=== PATIENT | female | born 1995 | race Caucasian/White ===

== ENCOUNTER 2020-06-29 09:02 | Outpatient (REF) | payer OTHER, SELFPAY ==
[2020-06-29 09:28] LABS: COVID-19 Test Negative (Negative)
== END 2020-06-29 09:03 | disposition home or self-care (01) ==
LOC: HO.LAB 09:02
PROVIDERS: Visit Provider Internal Medicine
DX: Z20.828 Contact with and (suspected) exposure to other viral communicable diseases (principal)
CPT/HCPCS: 87635; C9803

== ENCOUNTER → 2020-08-17 14:54 | Outpatient (BNVA) | payer OTHER, SELFPAY | PROVIDERS: Visit Provider Advanced Practice Midwife | DX: Z32.00 Encounter for pregnancy test, result unknown (principal) | CPT/HCPCS: 81025 ==

== ENCOUNTER 2020-08-24 15:17 | Outpatient (REF) | payer OTHER, SELFPAY ==
[2020-08-24 15:42] LABS: COVID-19 Test Negative (Negative)
== END 2020-08-24 15:18 | disposition home or self-care (01) ==
LOC: HO.EMPCOV 15:17
PROVIDERS: Visit Provider Internal Medicine
DX: Z20.822 Contact with and (suspected) exposure to COVID-19 (principal)
CPT/HCPCS: 36415; 87635; C9803

== ENCOUNTER → 2020-09-01 14:06 | Outpatient (BNVA) | payer OTHER, SELFPAY | PROVIDERS: Visit Provider Advanced Practice Midwife | CPT/HCPCS: 99212 ==

== ENCOUNTER 2020-09-03 10:28 | Outpatient (REF) | payer OTHER, SELFPAY ==
[2020-09-03 11:04] LABS: MANUAL DIFF FLAG NO
[2020-09-03 11:08] LABS: Basophils Percent Auto 0.3 % (0-2); Eosinophils Percent Auto 0.5 % (0-4); Hematocrit 35.1 % (37-47); Imm Gran Abs Auto 0.01 X10*3/uL (0.00-0.03); Imm Gran Pct Auto 0.3 % (0.0-0.4); Lymphocytes Absolute Auto 1.6 X10*3/uL (1.2-4.9); Lymphocytes Percent Auto 40.6 % (20-40); Mean Corpuscular HGB Conc 34.2 g/dl (31.0-35.0); Mean Corpuscular Hemoglobin 28.2 pg (27.0-33.0); Mean Corpuscular Volume 82.4 fL (80-98); Mean Platelet Volume 10.5 fL (9.4-12.3); Monocytes Absolute Auto 0.4 X10*3/uL (0.1-1.2); Monocytes Percent Auto 9.3 % (2-11); Platelet Count 205 X10*3/uL (160-400); Red Blood Count 4.26 X10*6/uL (4.20-5.50); Red Cell Distribution Width 13.1 % (11.0-16.0)
[2020-09-03 11:52] LABS: Amphetamine Screen Urine Not Detected (Not Detect); Barbiturates, Urine Not Detected (Not Detect); Benzodiazepines Screen Urine Not Detected (Not Detect); Cannabinoid Screen Urine Not Detected (Not Detect); Cocaine Screen Urine Not Detected (Not Detect); Opiate Screen Urine Not Detected (Not Detect); Phencyclidine Screen Urine Not Detected (Not Detect)
[2020-09-04 03:47] LABS: HBsAGNum1 0.19 S/CO (0.00-0.99); HIV AB/AG Nonreactive (Nonreactive); HIV Num 1 0.11 S/CO (0.00-0.99); Hepatitis B Surface Antigen Negative (Negative); ~HepC Num1 0.07 S/CO (0.00-0.79); ~Hepatitis C Antibody Nonreactive (Nonreactive)
[2020-09-04 03:51] LABS: Syphilis Screen Nonreactive (Nonreactive)
[2020-09-04 05:46] LABS: Rubella IgG Antibody 5.09 Index
== END 2020-09-03 10:29 | disposition home or self-care (01) ==
LOC: HO.LAB 10:28
PROVIDERS: Visit Provider Advanced Practice Midwife
DX: Z34.90 Encounter for supervision of normal pregnancy, unspecified, unspecified trimester (principal)
CPT/HCPCS: 80307; 85025; 86762; 86780; 86787; 86803; 86850; 86900; 86901; 87086; 87340; 87389

== ENCOUNTER 2020-09-08 14:46 | Outpatient (REF) | payer OTHER, SELFPAY ==
[2020-09-09 08:23] LABS: BV Int Neg Control Negative (Negative); BV Int Pos Control Positive (Positive)
[2020-09-09 09:57] LABS: C. trachomatis RNA TMA NOT DETECTED (NOT DETECTED); N. gonorrhoeae RNA TMA NOT DETECTED (NOT DETECTED)
== END 2020-09-08 14:47 | disposition home or self-care (01) ==
LOC: HO.LAB 14:46
PROVIDERS: Visit Provider Advanced Practice Midwife
DX: Z34.91 Encounter for supervision of normal pregnancy, unspecified, first trimester (principal)
CPT/HCPCS: 36415; 87480; 87491; 87510; 87591; 87660; 88142; 99212

== ENCOUNTER 2020-09-11 09:56 | Outpatient (REF) | payer OTHER, SELFPAY ==
--- NOTE | ~2020-09-11 | US_ITS ---
EXAMINATION: OBSTETRICAL ULTRASOUND, FIRST TRIMESTER HISTORY: 25-year-old at the 11.4 weeks of gestation NT screening COMPARISON: None in this TECHNIQUE: Real time transabdominal imaging with color and M-mode Doppler. FINDINGS: A single, live IUP CRL of 50.0 mm c/w 11.6wks is noted. Heart Rate: 144 beats per minute. Normal yolk sac seen. NT was 1.3.mm. NB Present The embryo appears sonographically wnl for this GA. Both maternal ovaries are seen and appear normal. GESTATIONAL AGE: 1. Established GA: 11.4 wks 2. GA from [facility]: 11.6 wks ESTIMATED DATE OF DELIVERY: 1. Established CLOTILDE: 03/29/2021 2. CLOTILDE from [facility]: 03/27/2021 US/US OB 1T nuc measure IMPRESSION: 1. A single live IUP 2. Size equals dates 3. NT of 1.3 mm MFM Consultation: I reviewed the ultrasound findings along with significance of NT measurement. The NT of less than 3mm is generally reassuring. However, the sensitivity for T21 detection is only 60%. I reviewed the availability of serum aneuploidy screening which includes cell-free DNA and placental protein based tests. I discussed the sensitivity, false-positive rate, and other limitations associated with each test. I also reviewed the availability of invasive diagnostic tests that are associated small but definite risk of miscarriage. We also reviewed the differences between screening tests and diagnostic tests. After our discussion, she opted for the First trimester screening that is based on cell-free DNA or non-invasive testing (NIPT). The result will be faxed to your office in approximately 7 days. A follow up at 18 weeks for survey has been scheduled. Thank you very much for this referral. Majority of this visit was spent reviewing her care and counselling her in face to face time: Time spent 20 min.
== END 2020-09-11 09:57 | disposition home or self-care (01) ==
LOC: HO.US 09:56
PROVIDERS: Visit Provider Advanced Practice Midwife
DX: Z34.90 Encounter for supervision of normal pregnancy, unspecified, unspecified trimester (principal); Z36.82 Encounter for antenatal screening for nuchal translucency; Z3A.11 11 weeks gestation of pregnancy
CPT/HCPCS: 76813

== ENCOUNTER → 2020-10-06 14:49 | Outpatient (BNVA) | payer OTHER, SELFPAY | PROVIDERS: Visit Provider Advanced Practice Midwife | DX: Z34.92 Encounter for supervision of normal pregnancy, unspecified, second trimester (principal) | CPT/HCPCS: 81003; 99212 ==

== ENCOUNTER 2020-10-30 12:53 | Outpatient (REF) | payer OTHER, SELFPAY ==
--- NOTE | ~2020-10-30 | US_ITS ---
EXAMINATION: US OBSTETRICAL CLINICAL INFORMATION: 25-year-old at 18.4 weeks of gestation Suspected anomaly COMPARISON: 09/11/2020 TECHNIQUE: Real-time transabdominal ultrasound was performed using C1-5 megahertz transducer. FINDINGS: A single, active, fetus is seen in vertex presentation. The placenta is posterior without previa, and the amniotic fluid volume is wnl. MEASUREMENTS: 1. Biparietal Diameter: 4.2 cm; 18.5 wks 2. Occipital Frontal Diameter: 5.7 cm 3. Head Circumference: 15.7 cm; 18.5 wks 4. Abdominal Circumference: 14.2 cm; 19.4 wks 5. Femur Length: 2.96 cm; 19.1 wks 6. Humerus Length: 2.8 cm; 19.0 wks 7. Tibia Length: 2.61 cm; 19.3 wks 8. Ulna Length: 2.6 cm; 19.3 wks 9. Lateral ventricle: 0.52 cm 10. Cerebellum: 1.91 cm; 19.5 wks 11. Cisterna Magna: 0.42 cm 12. Nuchal Fold: 4.7 mm 13. Heart Rate: 140 beats per minute Rt ovary: normal Lt ovary: normal Cervical length 3.7 cm on T/A. GESTATIONAL AGE: 1. Established GA: 18.4 wks 2. GA from [facility]: 19.1 wks ESTIMATED DATE OF DELIVERY: 1. Established CLOTILDE: 03/29/2021 2. CLOTILDE from [facility]: 03/25/2021 ANATOMY: The visualized anatomy includes but not limited to: 1. Cranium: Normal 2. Intracranial anatomy: cavum septum pellucidi, lateral ventricles, choroid plexus, cerebellum, posterior fossa, third and fourth ventricles. 3. face: orbits, lip/palate, profile, nasal bone 4. Heart: four-chamber view of the heart, ventricular septum, foramen ovale, pulmonary vein, left and right outflow tracts, three-vessel view, 3 vessel trachea view, aortic and ductal arches, situs.. 5. Diaphragm: Normal 6. Abdominal wall: Normal 7. Cord Insertion: Normal 8. Spine: Cervical, thoracic, lumbar, sacral. 9. Stomach: Normal size and shape 10. Right Kidney: Normal 11. Left Kidney: Normal 12. 3 vessel cord: Normal 13. Upper extremity: Open hands, fifth digit. 14. Lower extremity: Tibia, fibula, bilateral feet. 15. Bladder: Normal 16. Genitalia: Female, patient aware US/US OB /maternal detail IMPRESSION: 1. Single, living, intrauterine with appropriate biometry. 2. Normal survey DISCUSSION: I reviewed today's ultrasound findings. We discussed the limitations of ultrasound in diagnosing aneuploidy and other congenital abnormalities. I reviewed the differences between screening test and diagnostic test. Amniocentesis was discussed and declined. She was informed that the baseline incidence of congenital abnormalities is approximately 3-5%. Not all these conditions are diagnosable in utero. RECOMMENDATIONS: 1. Follow-up when necessary Thank you for allowing me to participate in her care. Total time 20 minutes. The time spent was devoted to counseling the patient about the disease and diagnosis, coordinating care including reviewing her records, pertinent lab data and studies, as well as discussing diagnostic evaluation and workup, plan therapeutic interventions and future disposition of care. This includes any additional research needed to obtain further information in formulating the plan of care of this patient. This note was generated with a voice recognition program. Please excuse any errors which may have been overlooked during my review of this note. Sometimes these errors may affect the content or meaning of a given sentence.
== END 2020-10-30 12:54 | disposition home or self-care (01) ==
LOC: HO.US 12:53
PROVIDERS: Visit Provider Advanced Practice Midwife
DX: Z36.3 Encounter for antenatal screening for malformations (principal)
CPT/HCPCS: 76811

== ENCOUNTER → 2020-11-03 13:09 | Outpatient (BNVA) | payer OTHER, SELFPAY | PROVIDERS: Visit Provider Advanced Practice Midwife | DX: Z13.89 Encounter for screening for other disorder (principal) | CPT/HCPCS: 99212 ==

== ENCOUNTER 2020-11-12 09:52 | Outpatient (REF) | payer OTHER, SELFPAY ==
[2020-11-12 10:35] LABS: COVID-19 Test Negative (Negative); IDNOW Serial# 55D5AD1C
== END 2020-11-12 09:53 | disposition home or self-care (01) ==
LOC: HO.EMPCOV 09:52
PROVIDERS: Visit Provider Internal Medicine
DX: Z20.822 Contact with and (suspected) exposure to COVID-19 (principal)
CPT/HCPCS: 36415; 87635; C9803

== ENCOUNTER → 2020-12-03 09:59 | Outpatient (BNVA) | payer OTHER, SELFPAY | PROVIDERS: Visit Provider Advanced Practice Midwife | DX: Z34.92 Encounter for supervision of normal pregnancy, unspecified, second trimester (principal); Z3A.23 23 weeks gestation of pregnancy | CPT/HCPCS: 81003; 99212 ==

== ENCOUNTER 2020-12-09 14:14 | Outpatient (REF) | payer OTHER, SELFPAY ==
[2020-12-09 14:31] LABS: COVID-19 Test Negative (Negative)
== END 2020-12-09 14:15 | disposition home or self-care (01) ==
LOC: HO.EMPCOV 14:14
PROVIDERS: Visit Provider Internal Medicine
DX: Z20.822 Contact with and (suspected) exposure to COVID-19 (principal)
CPT/HCPCS: 36415; 87635; C9803

== ENCOUNTER → 2020-12-31 09:59 | Outpatient (BNVA) | payer OTHER, SELFPAY | PROVIDERS: Visit Provider Advanced Practice Midwife | DX: Z34.92 Encounter for supervision of normal pregnancy, unspecified, second trimester (principal); Z3A.27 27 weeks gestation of pregnancy | CPT/HCPCS: 81003; 99212 ==

== ENCOUNTER 2021-01-09 07:11 | Outpatient (REF) | payer OTHER, SELFPAY ==
[2021-01-09 09:46] LABS: Glucose 1 Hour PP 50gm Dose 113 mg/dL (60-140)
[2021-01-09 09:47] LABS: Hematocrit 35.6 % (37-47); Hemoglobin 11.7 g/dl (12.0-16.0); Mean Corpuscular HGB Conc 32.9 g/dl (31.0-35.0); Mean Corpuscular Hemoglobin 28.5 pg (27.0-33.0); Mean Corpuscular Volume 86.8 fL (80-98); Mean Platelet Volume 10.8 fL (9.4-12.3); Platelet Count 203 X10*3/uL (160-400); White Blood Count 7.7 X10*3/uL (4.8-10.8)
[2021-01-11 07:35] LABS: Syphilis Screen Nonreactive (Nonreactive)
== END 2021-01-09 07:12 | disposition home or self-care (01) ==
LOC: HO.LAB 07:11
PROVIDERS: Visit Provider Advanced Practice Midwife
DX: Z34.92 Encounter for supervision of normal pregnancy, unspecified, second trimester (principal)
CPT/HCPCS: 36415; 85027; 86780

== ENCOUNTER → 2021-01-14 10:01 | Outpatient (BNVA) | payer OTHER, SELFPAY | PROVIDERS: Visit Provider Advanced Practice Midwife | DX: Z34.93 Encounter for supervision of normal pregnancy, unspecified, third trimester (principal); Z13.31 Encounter for screening for depression; Z3A.29 29 weeks gestation of pregnancy | CPT/HCPCS: 81003; 99212 ==

== ENCOUNTER → 2021-01-28 09:28 | Outpatient (BNVA) | payer OTHER, SELFPAY | PROVIDERS: Visit Provider Advanced Practice Midwife | DX: Z34.93 Encounter for supervision of normal pregnancy, unspecified, third trimester (principal); Z3A.31 31 weeks gestation of pregnancy | CPT/HCPCS: 81003; 99212 ==

== ENCOUNTER 2021-02-05 09:24 | Outpatient (REF) | payer OTHER, SELFPAY | END 2021-02-05 09:25 | disposition home or self-care (01) | LOC: HO.LAB 09:24 | PROVIDERS: Visit Provider Internal Medicine | DX: Z20.822 Contact with and (suspected) exposure to COVID-19 (principal) | CPT/HCPCS: C9803; U0003; U0005 ==

== ENCOUNTER → 2021-02-26 13:29 | Outpatient (BNVA) | payer OTHER, SELFPAY | PROVIDERS: Visit Provider Advanced Practice Midwife | DX: Z34.93 Encounter for supervision of normal pregnancy, unspecified, third trimester (principal); Z3A.35 35 weeks gestation of pregnancy | CPT/HCPCS: 90471; 90715; 99212 ==

== ENCOUNTER 2021-03-05 11:29 | Outpatient (REF) | payer OTHER, SELFPAY ==
[2021-03-06 11:37] LABS: CT PCR NOT DETECTED (Not Detect.); NG PCR NOT DETECTED (Not Detect.)
[2021-03-06 13:36] LABS: BV Int Neg Control Negative (Negative); BV Int Pos Control Positive (Positive)
== END 2021-03-05 11:30 | disposition home or self-care (01) ==
LOC: HO.LAB 11:29
PROVIDERS: Visit Provider Advanced Practice Midwife
DX: O26.843 Uterine size-date discrepancy, third trimester (principal); Z3A.36 36 weeks gestation of pregnancy
CPT/HCPCS: 87081; 87480; 87491; 87510; 87591; 87660; 99212

== ENCOUNTER 2021-03-10 13:17 | Outpatient (REF) | payer OTHER, SELFPAY ==
--- NOTE | ~2021-03-10 | US_ITS ---
EXAMINATION: US OBSTETRICAL FOLLOWUP WITH BIOPHYSICAL PROFILE CLINICAL INFORMATION: Growth. Check position. COMPARISON: Ultrasound OB /maternal detail 10/30/2020 TECHNIQUE: Real-time transabdominal imaging with color and M-mode Doppler. POSITION: Cephalic. PLACENTA: Posterior. AMNIOTIC FLUID INDEX: 8.33 cm. MEASUREMENTS: The initial dating ultrasound data provided an estimated date of delivery of 03/27/2021. biometric measurements are as follows: Biparietal Diameter: 8.78 cm (35 weeks and 4 days) Head Circumference: 32.65 cm (37 weeks and 1 day) Abdominal Circumference: 31.47 cm (35 weeks and 3 days) Femur Length: 7.26 cm (37 weeks and 2 days) The standard deviation for the above measurements is +/- 3 weeks. ESTIMATED WEIGHT: The EFW is 2832 g (6 lbs 4 oz. This is at the 26th percentile. A vertical pocket of measured greater than 6 cm. There is visualization of bilateral kidneys, urinary bladder, stomach and 4 chamber heart. BIOPHYSICAL PROFILE: Biophysical profile is performed over 30 minutes with assessment of breathing, gross body movement, tone, and qualitative amniotic fluid volume. Each matrix is scored 0 or 2, depending if the metric is present. Maximum total score possible is 8. Motion: 2 Tone: 2 Breathin Amniotic Fluid: 2 Total score: 8 HR: 133 bpm US/US OB follow up IMPRESSION: 1. Single intrauterine gestation in cephalic position with posterior placenta. 2. EFW: 2832 grams. 3. MATTHEW: 8.33 cm. 4. BPP score: 8/8 (scale 0-8).
== END 2021-03-10 13:18 | disposition home or self-care (01) ==
LOC: HO.HMGCX 13:17
PROVIDERS: Visit Provider Advanced Practice Midwife
DX: O26.849 Uterine size-date discrepancy, unspecified trimester (principal)
CPT/HCPCS: 76816

== ENCOUNTER 2021-03-12 09:54 | Outpatient (REF) | payer OTHER, SELFPAY ==
[2021-03-12 10:45] LABS: COVID-19 Test Positive (Negative)
== END 2021-03-12 09:55 | disposition home or self-care (01) ==
LOC: HO.LAB 09:54
PROVIDERS: Visit Provider Internal Medicine
DX: Z20.822 Contact with and (suspected) exposure to COVID-19 (principal)
CPT/HCPCS: 36415; 87635; C9803

== ENCOUNTER → 2021-05-03 11:19 | Outpatient (BNVA) | payer OTHER, SELFPAY | PROVIDERS: Visit Provider Advanced Practice Midwife ==

== ENCOUNTER 2021-08-10 06:25 | Outpatient (REF) | payer OTHER, SELFPAY | END 2021-08-10 06:26 | disposition home or self-care (01) | LOC: HO.LAB 06:25 | PROVIDERS: Visit Provider Internal Medicine | DX: Z13.89 Encounter for screening for other disorder (principal) ==

== ENCOUNTER 2021-08-16 12:31 | Outpatient (REF) | payer OTHER, SELFPAY ==
[2021-08-16 13:13] LABS: Binax Internal Control QC Valid; Binax Now Covid-19 Ag Negative (Negative)
== END 2021-08-16 12:32 | disposition home or self-care (01) ==
LOC: HO.EMPCOV 12:31
PROVIDERS: Visit Provider Internal Medicine
DX: Z20.822 Contact with and (suspected) exposure to COVID-19 (principal)
CPT/HCPCS: 36415; C9803

== ENCOUNTER 2022-02-10 07:31 | Outpatient (REF) | payer OTHER, SELFPAY ==
[2022-02-10 08:08] LABS: COVID-19 Test Negative (Negative); IDNOW Serial# 16C4AD1C
== END 2022-02-10 07:32 | disposition home or self-care (01) ==
LOC: HO.LAB 07:31
PROVIDERS: Visit Provider Internal Medicine
DX: Z20.822 Contact with and (suspected) exposure to COVID-19 (principal)
CPT/HCPCS: 87635; C9803

== ENCOUNTER 2023-01-26 16:26 | Outpatient (REF) | payer OTHER, SELFPAY ==
[2023-01-27 05:14] LABS: HBc Num1 0.09 S/CO (0.00-0.79); HBsAGNum1 0.36 S/CO (0.00-0.99); Hepatitis B Core Antibody Nonreactive (Nonreactive); Hepatitis B Surface Antigen Negative (Negative); ~Hepatitis B Surface Antibody NONREACTIVE (Nonreactive)
[2023-01-28 16:29] LABS: TS Negative Control Passed; TS Panel A 0; TS Panel B 0; TS Positive Control Passed; TSpotTB Negative (Negative)
== END 2023-01-26 16:27 | disposition home or self-care (01) ==
LOC: HO.LAB 16:26
PROVIDERS: Visit Provider Nurse Practitioner Family
DX: Z01.84 Encounter for antibody response examination (principal); Z11.1 Encounter for screening for respiratory tuberculosis
CPT/HCPCS: 36415; 86481; 86704; 86706; 87340

== ENCOUNTER 2023-01-30 23:22 | Emergency (ER) | payer OTHER, SELFPAY ==
--- NOTE | ~2023-01-30 | US_ITS ---
EXAMINATION: US ABDOMEN LIMITED CLINICAL INFORMATION: Upper abdominal pain, question cholelithiasis. COMPARISON: None available. TECHNIQUE: Real-time imaging of the right upper quadrant abdominal viscera. FINDINGS: GALLBLADDER: The gallbladder is physiologically distended without evidence of stones, sludge, polyps, wall thickening or pericholecystic fluid. COMMON BILE DUCT: Normal in caliber measuring 0.3 cm in diameter. US/US abdomen limited IMPRESSION: No abnormality demonstrated.
[2023-01-30 23:30] VITALS: BP 113/74; PULSE 67; RESP 18; TEMP 36.2; O2SAT 100; BMI 26.6
[2023-01-30 23:45] LABS: MANUAL DIFF FLAG NO
[2023-01-30 23:46] LABS: Basophils Percent Auto 0.5 % (0-2); Eosinophils Absolute Auto 0.1 X10*3/uL (0.0-0.4); Eosinophils Percent Auto 1.2 % (0-4); Hematocrit 37.7 % (37.0-47.0); Hemoglobin 12.4 g/dl (12.0-16.0); Imm Gran Abs Auto 0.01 X10*3/uL (0.00-0.03); Imm Gran Pct Auto 0.2 % (0.0-0.4); Lymphocytes Absolute Auto 1.9 X10*3/uL (1.2-4.9); Lymphocytes Percent Auto 44.2 % (20-40); Mean Corpuscular HGB Conc 32.9 g/dl (31.0-35.0); Mean Corpuscular Hemoglobin 26.8 pg (27.0-33.0); Mean Corpuscular Volume 81.4 fL (80.0-98.0); Mean Platelet Volume 10.2 fL (9.4-12.3); Monocytes Absolute Auto 0.4 X10*3/uL (0.1-1.2); Monocytes Percent Auto 8.5 % (2-11); Neutrophils Percent Auto 45.4 % (45-73); Platelet Count 176 X10*3/uL (160-400); Red Blood Count 4.63 X10*6/uL (4.20-5.50); Red Cell Distribution Width 13.3 % (11.0-16.0); White Blood Count 4.3 X10*3/uL (4.8-10.8)
[2023-01-31 00:04] LABS: Alanine Aminotransferase < 5 U/L (0-31); Albumin Level 4.2 g/dL (3.5-5.0); Alkaline Phosphatase 58 U/L (39-117); Anion Gap 12 (12-20); Aspartate Amino Transferase 12 U/L (5-31); Bilirubin Total 0.6 mg/dL (0.0-1.0); Blood Urea Nitrogen 9 mg/dL (9-16); Calcium 9.4 mg/dL (8.4-10.2); Carbon Dioxide 27 mmol/L (22-29); Chloride 105 mmol/L (96-108); Creatinine Clr Calc Pharmacy 105.8; Estimated Glomerular Filt Rate > 60; Glucose Random 101 mg/dL (60-115); Lipase 8 U/L (8-78); Sodium 140 mmol/L (135-145)
[2023-01-31 00:17] LABS: HCG Quantitative < 2 mIU/mL
--- NOTE | 2023-01-31 02:20 | ED_ITS ---
HPI - Abdominal Pain General Chief Complaint: Abdominal Pain Stated Complaint: Abd pain Time Seen by Provider: 01/31/23 01:56 Source: patient Mode of arrival: ambulatory Limitations: no limitations History of Present Illness HPI narrative: Patient with significant abdominal complaints in the past been having upper abdominal pain for last 3 days patient drinks coffee a lot no history of gallstones no significant alcohol use no radiation of pain slight nausea no vomiting no diarrhea no urinary complaint Related Data Previous Rx's Medication Instructions Recorded desogestrel-e.estradiol 0.15 1 tab PO DAILY #84 tabs 06/01/22 mg-0.02 mg(21)/e.estrad 0.01 mg(5) tablet omeprazole 20 mg capsule,delayed 20 mg PO DAILY #14 caps 01/30/23 release cefuroxime axetil 250 mg tablet 250 mg PO BID 7 days #14 tabs 01/31/23 omeprazole 40 mg capsule,delayed 40 mg PO DAILY #30 caps 01/31/23 release sucralfate 1 gram tablet 1 g PO BID #20 tabs 01/31/23 Allergies Allergy/AdvReac Type Severity Reaction Status Date / Time No Known Allergies Allergy Verified 01/30/23 23:29 Review of Systems Review of Systems Yes all other systems are reviewed and are negative PMF Past Medical History Medical History Cervical cancer screening Family History Family History Mother No problems noted. Father No problems noted. 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 Oriented X3. No acute distress. Eyes: No pallor or icterus ENT: Pharynx normal. Oral Mucosa moist Neck: Normal inspection. Neck supple. CVS: Normal heart rate and rhythm. Pulses normal. Respiratory: No respiratory distress. Equal air entry bilateral, no wheezing/rales/rhonchi Abdomen: Soft 0 mild epigastric tenderness Bowel sounds are present, no mass palpable, no CVA tenderness Skin: Skin warm and dry. Normal skin color. Normal skin turgor. Extremities: No lower extremity edema. No calf tenderness Neuro: Oriented X 3. No motor deficit. Medical Decision Making Medical Decision Making [facility] Narrative: Patient with gastritis felt better after Maalox ultrasound negative for gallstones UA showed few WBCs treated with p.o. Ceftin Lab Data [facility] Lab Attestation statement: I reviewed the patient's lab results. 01/30/23 23:40 01/30/23 23:40 Labs: Lab Results 01/30/23 01/30/23 01/30/23 Range/Units 23:40 23:40 23:40 WBC 4.3 L (4.8-10.8) X10*3/uL RBC 4.63 (4.20-5.50) X10*6/uL Hgb 12.4 (12.0-16.0) g/dl Hct 37.7 (37.0-47.0) % MCV 81.4 (80.0-98.0) fL MCH 26.8 L (27.0-33.0) pg MCHC 32.9 (31.0-35.0) g/dl RDW 13.3 (11.0-16.0) % Plt Count 176 (160-400) X10*3/uL MPV 10.2 (9.4-12.3) fL Immature Gran % (Auto) 0.2 (0.0-0.4) % Neut % (Auto) 45.4 (45-73) % Lymph % (Auto) 44.2 H (20-40) % [place] % (Auto) 8.5 (2-11) % Eos % (Auto) 1.2 (0-4) % Baso % (Auto) 0.5 (0-2) % Lymph # (Auto) 1.9 (1.2-4.9) X10*3/uL [place] # (Auto) 0.4 (0.1-1.2) X10*3/uL Eos # (Auto) 0.1 (0.0-0.4) X10*3/uL Baso # (Auto) 0.0 (0.0-0.2) X10*3/uL Abs Immat Gran (auto) 0.01 (0.00-0.03) X10*3/uL Absolute Neuts (auto) 2.0 (2.0-8.3) x10*3/uL Absolute Nucleated RBC 0.000 (0.0-0.012) X10*3/uL Nucleated RBC % (auto) 0.0 (0.0-0.2) /100WBC Sodium 140 (135-145) mmol/L Potassium 4.0 (3.3-5.1) mmol/L Chloride 105 (96-108) mmol/L Carbon Dioxide 27 (22-29) mmol/L Anion Gap 12 (12-20) BUN 9 (9-16) mg/dL Creatinine 0.84 (0.5-1.4) mg/dL Estim Creat Clear Calc 105.8 Estimated GFR > 60 Random Glucose 101 (60-115) mg/dL Calcium 9.4 (8.4-10.2) mg/dL Total Bilirubin 0.6 (0.0-1.0) mg/dL AST 12 (5-31) U/L ALT < 5 (0-31) U/L Alkaline Phosphatase 58 (39-117) U/L Total Protein 7.0 (6.5-8.0) g/dL Albumin 4.2 (3.5-5.0) g/dL Lipase 8 (8-78) U/L Beta HCG, Quant < 2 mIU/mL Urine Color Urine Appearance Urine pH (5.0-9.0) Ur Specific [place] (1.005-1.025) Urine Protein (Neg-Trace) mg/dL Urine Glucose (UA) (Negative) mg/dL Urine Ketones (Negative) mg/dL Urine Blood (Negative) Urine Nitrite (Negative) Ur Leukocyte Esterase (Negative) Urine RBC (0-2) /HPF Urine WBC (0-5) /HPF Ur Squamous Epith Cells (0-2) /HPF Urine Bacteria (None Seen) Hyaline Casts (0-2) /LPF 01/31/23 Range/Units 05:15 WBC (4.8-10.8) X10*3/uL RBC (4.20-5.50) X10*6/uL Hgb (12.0-16.0) g/dl Hct (37.0-47.0) % MCV (80.0-98.0) fL MCH (27.0-33.0) pg MCHC (31.0-35.0) g/dl RDW (11.0-16.0) % Plt Count (160-400) X10*3/uL MPV (9.4-12.3) fL Immature Gran % (Auto) (0.0-0.4) % Neut % (Auto) (45-73) % Lymph % (Auto) (20-40) % [place] % (Auto) (2-11) % Eos % (Auto) (0-4) % Baso % (Auto) (0-2) % Lymph # (Auto) (1.2-4.9) X10*3/uL [place] # (Auto) (0.1-1.2) X10*3/uL Eos # (Auto) (0.0-0.4) X10*3/uL Baso # (Auto) (0.0-0.2) X10*3/uL Abs Immat Gran (auto) (0.00-0.03) X10*3/uL Absolute Neuts (auto) (2.0-8.3) x10*3/uL Absolute Nucleated RBC (0.0-0.012) X10*3/uL Nucleated RBC % (auto) (0.0-0.2) /100WBC Sodium (135-145) mmol/L Potassium (3.3-5.1) mmol/L Chloride (96-108) mmol/L Carbon Dioxide (22-29) mmol/L Anion Gap (12-20) BUN (9-16) mg/dL Creatinine (0.5-1.4) mg/dL Estim Creat Clear Calc Estimated GFR Random Glucose (60-115) mg/dL Calcium (8.4-10.2) mg/dL Total Bilirubin (0.0-1.0) mg/dL AST (5-31) U/L ALT (0-31) U/L Alkaline Phosphatase (39-117) U/L Total Protein (6.5-8.0) g/dL Albumin (3.5-5.0) g/dL Lipase (8-78) U/L Beta HCG, Quant mIU/mL Urine Color Yellow Urine Appearance Clear Urine pH 7.0 (5.0-9.0) Ur Specific [place] 1.020 (1.005-1.025) Urine Protein Negative (Neg-Trace) mg/dL Urine Glucose (UA) Negative (Negative) mg/dL Urine Ketones 15 (Negative) mg/dL Urine Blood Negative (Negative) Urine Nitrite Negative (Negative) Ur Leukocyte Esterase Moderate (2+) H (Negative) Urine RBC 6-10 H (0-2) /HPF Urine WBC 6-10 H (0-5) /HPF Ur Squamous Epith Cells 3-5 (0-2) /HPF Urine Bacteria 1+ (None Seen) Hyaline Casts 0-2 (0-2) /LPF Medications Administered Discontinued Medications Generic Name Dose Route Start Last Admin Trade Name Freq PRN Reason Stop Dose Admin Al Hydroxide/Mg Hydroxide 30 ml 01/31/23 02:23 01/31/23 03:24 Magnesium Hydrox/Alum Hydrox 30 Ml Oral.Susp PO 01/31/23 02:24 30 ml ONCE ONE Administration Cefuroxime Axetil 500 mg 01/31/23 05:35 01/31/23 05:41 Cefuroxime Axetil 500 Mg Tablet PO 01/31/23 05:36 500 mg ONCE ONE Administration Famotidine 20 mg 01/31/23 02:23 01/31/23 03:25 Famotidine/Pf 20 Mg/2 Ml Vial IVPUSH 01/31/23 02:24 20 mg ONCE ONE Administration Sodium Chloride 1,000 mls @ 999 mls/hr 01/31/23 02:23 01/31/23 04:55 Ns IV 01/31/23 03:23 Infused .Q1H1M ONE Infusion Discharge Plan Discharge Clinical Impression: Acute gastritis, UTI (urinary tract infection) Patient Disposition: Home, Self-Care Instructions: Gastritis (ED), Urinary Tract Infection in Women (DC) Additional Instructions: Drink plenty of fluids Take antibiotic as prescribed Med is for gastritis as prescribed Avoid fried food and caffeine Follow with PCP if not better Prescriptions: New omeprazole 40 mg capsule,delayed release(DR/EC) 40 mg PO DAILY Qty: 30 0RF sucralfate 1 gram tablet 1 g PO BID Qty: 20 0RF cefuroxime axetil 250 mg tablet 250 mg PO BID 7 Days Qty: 14 0RF No Action omeprazole 20 mg capsule,delayed release(DR/EC) 20 mg PO DAILY Qty: 14 0RF desog-e.estradiol/e.estradiol 0.15-0.02 mgx21 /0.01 mg x 5 tablet 1 tab PO DAILY Qty: 84 4RF Interventions: ED Discharge Assessment Last Done: 01/31/23 05:50 Discharge Date/Time: 01/31/23 05:51
[2023-01-31 02:26] VITALS: BP 103/71; PULSE 67; RESP 18; TEMP 36.8; O2SAT 100
--- NOTE | 2023-01-31 02:27 | MHC.EDTECH ---
This tech attempted to get a UA from pt she stated she is unable to at this time,will re attempt. Vitals taken, pt is laying in stretcher at this time. Call flores within reach.
[2023-01-31] MEDS: Magnesium Hydrox/Alum Hydrox 30 ML ORAL.SUSP PO (03:24)
[2023-01-31] MEDS: Famotidine/PF 20 MG/2 ML VIAL IVPUSH (03:25)
[2023-01-31] MEDS: 0.9 % Sodium Chloride 1,000 ML 999 ML IV (03:25)
[2023-01-31 04:18] VITALS: BP 111/78; PULSE 64; RESP 18; TEMP 36.7; O2SAT 100
--- NOTE | 2023-01-31 04:18 | MHC.EDTECH ---
Re-attempted to get a urine sample,patient stated unable to at this time, Vitals taken .RN was made aware
[2023-01-31 05:22] LABS: Appearance Urine Clear; Color Urine Yellow; Glucose Urine UA Negative (Negative); Leukocyte Esterase Urine Moderate (2+) (Negative); Nitrite Urine Negative (Negative); UMIC TRIGGER UACC YES; Urine Blood Negative (Negative); Urine Ketones 15 mg/dL (Negative); Urine Protein Negative (Neg-Trace)
[2023-01-31 05:35] LABS: Bacteria Urine 1+ (None Seen); Hyaline Casts Urine 0-2 /LPF (0-2); UACC Culture Trigger YES
== END 2023-01-31 05:51 | disposition home or self-care (01) ==
PROVIDERS: Emergency Provider Internal Medicine; PCP Hospitalist
DX: K29.00 Acute gastritis without bleeding (principal); N39.0 Urinary tract infection, site not specified; Z79.899 Other long term (current) drug therapy
CPT/HCPCS: 36415; 76705; 80053; 81001; 83690; 84702; 85025; 87086; 96361; 96374; 99284; 99285

== ENCOUNTER 2023-05-02 12:58 | Outpatient (AMB) | payer OTHER, SELFPAY ==
[2023-05-02 13:19] VITALS: BP 110/66; PULSE 83; TEMP 36.6; O2SAT 99; BMI 26.2
--- NOTE | 2023-05-02 13:19 | MHC.OFFWIV ---
Intake Vital Signs 05/02/23 13:19 Height 5 ft 6 in Weight 162 lb 8 oz BMI 26.2 BP 110/66 Blood Pressure Location Lt brachial Position Sitting Pulse 83 Pulse Source Pulse Oximeter Temp 97.9 F Temp Source Temporal Artery Scan Pulse Oximetry (%) 99 Oxygen Delivery Method Room Air Intake Visit Reasons: EST/hep b blood work per [facility] office Intake Note: pt is here for hep B titer blood work Patient Tobacco Use Status: Never used Tobacco Allergies No Known Allergies Allergy (Verified 05/02/23 13:20) Do you need a note to return to daycare/school/sports/work: Yes HPI EST/hep b blood work per [facility] office HPI Details 27-year-old female presents to the office for a sick visit. She needs a hepatitis B quant test. She has already gotten 3 shots and needs prove of immunity. [facility], [facility] Medical History Cervical cancer screening Family History Mother No problems noted. Father No problems noted. 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 Will call with results. Orders: Orders Hepatitis B Surface Antibody Today Z11.59 - Encounter for screening for other viral diseases Coding Level of Care Code Est Pt Level 3 (71127) Diagnoses Need for hepatitis B screening test Z11.59
== END 2023-05-02 14:37 | disposition home or self-care (01) ==
PROVIDERS: PCP Hospitalist; Visit Provider Internal Medicine
DX: Z11.59 Encounter for screening for other viral diseases (principal)
CPT/HCPCS: 99213

== ENCOUNTER 2023-05-02 14:03 | Outpatient (REF) | payer OTHER, SELFPAY ==
[2023-05-03 04:32] LABS: HBS Num1 > 1000.00 mIU/mL (0-7.99); ~Hepatitis B Surface Antibody REACTIVE (Nonreactive)
== END 2023-05-02 14:04 | disposition home or self-care (01) ==
LOC: HO.HMGCLDS 14:03
PROVIDERS: Visit Provider Internal Medicine
DX: Z11.59 Encounter for screening for other viral diseases (principal); Z72.89 Other problems related to lifestyle
CPT/HCPCS: 36415; 86706

== ENCOUNTER 2023-06-05 14:29 | Outpatient (AMB) | payer OTHER, SELFPAY ==
--- NOTE | 2023-06-05 14:31 | A.OFFVIS_ITS ---
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 She does not think she has had any oops 's with the condoms. Gets normal regular periods and they are not too bad. Her last menstrual period was around 05 23 23. She thinks she gets slippery mucus towards the middle of her cycle. [facility] Medical History Cervical cancer screening Family History Mother No problems noted. Father No problems noted. 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 Current occupational exposures/hazards: No Cognitive needs: No Hearing needs: No Vision needs: No Female Reproductive History Menstrual Age of Menarche: 14 Duration of menses: 3-5 days Date of last menstrual period: 05/23/23 control method: none Total pregnancies: 2 Full term: 1 Number of Living Children: 1 Ab induced: 1 Date of last pap smear: 09/09/20 Physical Exam Vital Signs: Last Vital Signs BP 98/60 06/05/23 14:33 BMI result Body Mass Index 26.3 Const General: healthy appearing, comfortable, no acute distress, well developed and alert Nutritional Appearance: average body habitus Orientation/consciousness: patient oriented x3 Limitations: no limitations HEENT Head: Yes normocephalic Neck Neck: Yes normal visual inspection Thyroid: Thyroid normal Chest Chest palpation & inspection: normal inspection of the chest Breast/axilla inspection: normal inspection of the breasts and normal inspection of the axillae Breast/axilla palpation: normal palpation of the breasts and normal palpation of the axillae Resp Effort & Inspection: normal respiratory effort GI Inspection: Yes normal to inspection, No Abdominal wall edema and No distended Palpation (GI): Soft to palpation and nontender Other: Normal communications professor exam. Her vulva does show evidence of moisture from panty liner use which she says she does use she is in the habit of using them. Vagina is pink and moist cervix multiparous pink moist with clear Deangelo discharge. Uterus is small anteverted mobile nontender adnexa nontender not enlarged patient not able to reproduce a good Kegel. General: Yes bladder normal to palpation External Female Exam: normal external appearance and normal appearance of the urethra Speculum Exam - Vagina: normal appearance of the vagina, normal palpation and normal vaginal discharge Speculum Exam - Cervix: normal appearance of the cervix, normal palpation and nontender Bimanual exam- vagina & uterus: normal bimanual exam, normal palpation, uterine size normal, bladder normal to palpation, consistency normal, normal palpation, uterine mobility normal, uterine shape normal, No Cervical tenderness present, non-tender and no cervical motion tenderness Bimanual Exam- Adnexa, other: normal adnexae, no masses, normal and No adnexal tenderness Neuro General: patient oriented x3 Results Reviewed Results Reviewed: Her Pap smear negative in 2020. Assessment & Plan Assessment & Plan (1) Cervical cancer screening: Comment: first pap 09/08/20=sat/nil Code(s): Z12.4 - Encounter for screening for malignant neoplasm of cervix (2) Well woman exam with routine gynecological exam: Code(s): Z01.419 - Encounter for gynecological examination (general) (routine) without abnormal findings (3) control counseling: Code(s): Z30.09 - Encounter for other general counseling and advice on contraception (4) Pelvic floor weakness: Code(s): N81.89 - Other female genital prolapse Plan -----Discussed in this visit the following: healthy balanced diet, regular and consistent exercise, getting recommended health screens, doing the best she can for her particular health concerns, kegel exercises, pap smear screening and followup recommendations, mammography screening and SBE, normal changes in cycles in her life stage--- Discussed control options that she might be interested in she thinks she might want an IUD but she did not know the differences between the ParaGard and the Mirena IU S so I reviewed the differences between the 2 reviewed that the ParaGard IUD does not have any hormones whatsoever and she will continue to go through her own body cycles and some people do report slightly heavier cramp ear periods but that is about it the other IUD has hormones that affect changes on the cycle such that periods may go way over time but there are also changes to how women feel during the cycle. And there is variation in terms of how these changes are perceived by women. .Reviewed how the Mirena works and its affect on menstrual cycles and menses and the other common changes that women sometimes notice on mood weight another subtle cyclic changes. Reviewed that 1 of the reasons we insert the Mirena at the beginning of the menses is because of the typical physiologic changes that happen with menses that allow for the cervix to be slightly softened and open a very tiny bit which allow for more easy insertion of the Mirena. 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 -also encouraged her to resume doing the Kegel exercises and I gave her the brochure as follows ---I Had the patient and demonstrate a Kegel contraction at the end of the exam, ordered in order to explain a Kegel exercise, and instructed the patient on doing the same exercises several times a day with increasing strength each time. One useful to is to imagine pursestring around the vagina and pulling it tight and upwards as if raising the vagina, or imagining that her tight muscles are on the 1st floor and she is trying to pull them up to the 5th floor and then slowly letting them go down. To try to do these several times a day but focus on the quality and the strength of the exercises more than the quantity, and tried isolate just those muscles and not involve other body parts. Orders: Orders Bacterial Vaginosis Panel Today Z01.419 - Encounter for gynecological examination (general) (routine) without abnormal findings CT NG by PCR Today Z01.419 - Encounter for gynecological examination (general) (routine) without abnormal findings Coding Level of Care Code Est Pt Prev Care 18-39y(12062) Diagnoses Cervical cancer screening Z12.4 Well woman exam with routine gynecological exam Z01.419 control counseling Z30.09 Pelvic floor weakness N81.89
[2023-06-05 14:33] VITALS: BP 98/60; BMI 26.3
== END 2023-06-05 15:03 | disposition home or self-care (01) ==
LOC: HO.HWS 14:29
PROVIDERS: PCP Hospitalist; Visit Provider Advanced Practice Midwife
DX: Z12.4 Encounter for screening for malignant neoplasm of cervix (principal); Z01.419 Encounter for gynecological examination (general) (routine) without abnormal findings; Z30.09 Encounter for other general counseling and advice on contraception; N81.89 Other female genital prolapse
CPT/HCPCS: 99395

== ENCOUNTER 2023-06-05 14:29 | Outpatient (REF) | payer OTHER, SELFPAY ==
[2023-06-06 03:17] LABS: CT PCR NOT DETECTED (Not Detect.); NG PCR NOT DETECTED (Not Detect.)
[2023-06-06 11:54] LABS: BV Int Neg Control Negative (Negative); BV Int Pos Control Positive (Positive)
== END 2023-06-05 14:30 | disposition home or self-care (01) ==
LOC: HO.LNP 14:29
PROVIDERS: PCP Hospitalist; Visit Provider Advanced Practice Midwife
DX: Z20.2 Contact with and (suspected) exposure to infections with a predominantly sexual mode of transmission (principal); N81.89 Other female genital prolapse
CPT/HCPCS: 0353U; 87480; 87510; 87660

== ENCOUNTER 2023-07-14 15:01 | Outpatient (AMB) | payer OTHER, SELFPAY ==
--- NOTE | 2023-07-14 15:25 | AM.OFFWIN_ITS ---
Intake Vital Signs 07/14/23 15:29 Height 5 ft 6 in Weight 163 lb BMI 26.3 BP 102/70 Blood Pressure Location Rt brachial Position Sitting Pulse 72 Pulse Source Pulse Oximeter Temp 98.0 F Temp Source Temporal Artery Scan Pulse Oximetry (%) 99 Oxygen Delivery Method Room Air Intake Visit Reasons: EST/knee pain LT (lobby) Intake Note: pt is here for c.o left knee pain toward back denies injury this morning Patient Tobacco Use Status: Never used Tobacco Allergies No Known Allergies Allergy (Verified 07/14/23 15:29) Do you need a note to return to daycare/school/sports/work: Yes HPI HPI Comments History of Present Illness Details This is a 28-year-old female who presents to the office today for left knee pain. Patient denies any known trauma/injury to the knee. She states she woke up this morning with left knee pain and left knee swelling. She states the pain is located posteriorly and has extended down her lateral calf. She denies any anterior knee pain or anterior knee swelling. She denies any erythema of the knee. [facility] Medical History Cervical cancer screening Family History Mother No problems noted. Father No problems noted. 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 Current occupational exposures/hazards: No Cognitive needs: No Hearing needs: No Vision needs: No Female Reproductive History Menstrual Age of Menarche: 14 Review of Systems Const All systems reviewed & are unremarkable except as noted in HPI and below Reports no additional complaints Eyes Reports no additional complaints ENT Reports no additional complaints Card Reports no additional complaints Resp Reports no additional complaints GI Reports no additional complaints Reports no additional complaints Musc Reports no additional complaints Skin/Breast Reports system reviewed and no additional complaints, except as documented Neuro Reports no additional complaints Psych Reports no additional complaints Endo Reports no additional complaints David/Lymph Reports no additional complaints Aller/Immun Reports no additional complaints Physical Exam Vital Signs: Last Vital Signs Temp 98.0 F 07/14/23 15:29 Pulse 72 07/14/23 15:29 BP 102/70 07/14/23 15:29 Pulse Ox 99 07/14/23 15:29 Oxygen Delivery Method Room Air 07/14/23 15:29 BMI result Body Mass Index 26.3 Const Other: Vital signs reviewed. Constitutional: Non-toxic appearing. No acute distress. Well-developed and well-nourished. HEENT: Normocephalic and atraumatic. Skin: Warm and dry. No rashes or lesions noted. Neck: Full and painless range of motion. No cervical lymphadenopathy. Cardio: Regular rate. No lower extremity edema. No JVD. Pulmonary: No respiratory distress. No accessory muscle usage. Gastrointestinal: Soft, nontender, and nondistended in all 4 quadrants. Musculoskeletal: There is minimal swelling to the posterior aspect of the left knee. She has decreased and painful range of motion of the left knee. There is no erythema or warmth of the left knee. Neuro: Alert and oriented x4. Cranial nerves 2-12 grossly intact. No focal deficits appreciated. Psych: Normal mood and affect. Assessment & Plan Assessment & Plan (1) Posterior left knee pain: Code(s): M25.562 - Pain in left knee Plan: This is a 28-year-old female who presents to the office complaining of atraumatic left posterior knee pain and swelling. On physical examination, the patient has minimal swelling to the posterior aspect of the left knee and painful/decreased range of motion of the left knee. There is no erythema or warmth of the left knee. There is no erythema or swelling or tenderness to palpation of the left calf. Differential diagnoses includes sprain/strain versus ruptured Trevino cyst versus less likely DVT. Patient is unable to be PERC ruled out as she is on control. D-dimer obtained, if elevated, patient will require doppler US of the left lower extremity to rule out DVT. Additionally, I recommended rest/activity modification, ice to the area, compression with breanna bandage, and elevation of the extremity. Continue with PO ibuprofen 800mg every 8 hours x 1 week for anti-inflammatory treatment. Patient advised to follow up here or in the emergency room for persistent/worsening symptoms. Patient verbalized understanding and is agreeable with the plan. Orders: Orders XR knee LT 2V Today M25.562 - Pain in left knee D Dimer High Sensitivity Today R60.9 - Edema, unspecified Coding Level of Care Code Est Pt Level 3 (16375) Diagnoses Posterior left knee pain M25.562
[2023-07-14 15:29] VITALS: BP 102/70; PULSE 72; TEMP 36.7; O2SAT 99; BMI 26.3
== END 2023-07-14 16:36 | disposition home or self-care (01) ==
PROVIDERS: PCP Hospitalist; Visit Provider Physician Assistant Medical
DX: M25.562 Pain in left knee (principal)
CPT/HCPCS: 99213

== ENCOUNTER 2023-07-14 15:52 | Outpatient (REF) | payer OTHER, SELFPAY ==
--- NOTE | ~2023-07-14 | XR_ITS ---
EXAMINATION: XR KNEE, LEFT CLINICAL INFORMATION: Pain left knee. COMPARISON: None available. TECHNIQUE: Four views of the left knee. FINDINGS: No fracture or joint effusion. Alignment is anatomic. Joint spaces are maintained. No abnormal soft tissue calcification. XR/XR knee LT 2V IMPRESSION: Unremarkable left knee exam.
[2023-07-14 17:59] LABS: D Dimer High Sensitivity < 150 NG/ML
== END 2023-07-14 15:53 | disposition home or self-care (01) ==
LOC: HO.HMGCX 15:52
PROVIDERS: Visit Provider Physician Assistant Medical
DX: M25.562 Pain in left knee (principal); R60.9 Edema, unspecified
CPT/HCPCS: 36415; 73560; 85379

== ENCOUNTER 2024-02-19 11:59 | Outpatient (AMB) | payer OTHER, SELFPAY ==
[2024-02-19 12:00] VITALS: BP 126/78; PULSE 76; O2SAT 100; BMI 26.5
--- NOTE | 2024-02-19 12:00 | MHC.OFFWIV ---
Intake Vital Signs 02/19/24 12:00 Height 5 ft 6 in Weight 164 lb 6 oz BMI 26.5 BP 126/78 Blood Pressure Location Lt brachial Position Sitting Pulse 76 Pulse Source Pulse Oximeter Pulse Oximetry (%) 100 Oxygen Delivery Method Room Air Intake Visit Reasons: EP TB lab/School Intake Note: Pt is here today for TB for school Patient Tobacco Use Status: Never used Tobacco Allergies No Known Allergies Allergy (Verified 02/19/24 12:01) Do you need a note to return to daycare/school/sports/work: Yes HPI HPI Comments History of Present Illness Details Patient is a 28-year-old female with no significant past medical history here for a TB test for school. 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 She denies any history of vaccination for TB or any symptoms such as cough cold or fever or night sweats. [facility] Medical History Cervical cancer screening Family History Mother No problems noted. Father No problems noted. 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 Current occupational exposures/hazards: No Cognitive needs: No Hearing needs: No Vision needs: No Female Reproductive History Menstrual Age of Menarche: 14 Review of Systems Const All systems reviewed & are unremarkable except as noted in HPI and below Physical Exam Vital Signs: Last Vital Signs Pulse 76 02/19/24 12:00 BP 126/78 02/19/24 12:00 Pulse Ox 100 02/19/24 12:00 Oxygen Delivery Method Room Air 02/19/24 12:00 BMI result Body Mass Index 26.5 Const General: cooperative, healthy appearing, comfortable, no acute distress and well developed Orientation/consciousness: patient oriented x3 Limitations: no limitations Eyes General: appearance normal, both eyes and all related structures Resp Effort & Inspection: normal respiratory effort and able to speak in complete sentences Neuro General: patient oriented x3 Assessment & Plan Assessment & Plan (1) Tuberculosis screening: Code(s): Z11.1 - Encounter for screening for respiratory tuberculosis Plan: Ordered lab, told the patient she can swing by to fruit or nut picker a print out once the lab has resulted. Plan see above Orders: Orders T Spot TB Today Z11.1 - Encounter for screening for respiratory tuberculosis Coding Level of Care Code Est Pt Level 3 (36339) Diagnoses Tuberculosis screening Z11.1
== END 2024-02-19 12:21 | disposition home or self-care (01) ==
PROVIDERS: PCP Nurse Practitioner Family; Visit Provider Physician Assistant
DX: Z11.1 Encounter for screening for respiratory tuberculosis (principal)
CPT/HCPCS: 99213

== ENCOUNTER 2024-02-19 12:39 | Outpatient (REF) | payer OTHER, SELFPAY ==
[2024-02-21 21:52] LABS: TS Negative Control Passed; TS Panel A 1; TS Panel B 0; TS Positive Control Passed; TSpotTB Negative (Negative)
== END 2024-02-19 12:40 | disposition home or self-care (01) ==
LOC: HO.LAB 12:39
PROVIDERS: Visit Provider Physician Assistant
DX: Z11.1 Encounter for screening for respiratory tuberculosis (principal)
CPT/HCPCS: 36415; 86481

== ENCOUNTER 2024-08-06 10:03 | Outpatient (REF) | payer OTHER, SELFPAY | END 2024-08-06 10:04 | disposition home or self-care (01) | LOC: HO.LNP 10:03 | PROVIDERS: PCP Nurse Practitioner Family; Visit Provider Physician Assistant | DX: R30.0 Dysuria (principal) | CPT/HCPCS: 81003; 87086 ==

== ENCOUNTER 2024-08-06 10:03 | Outpatient (AMB) | payer OTHER, SELFPAY ==
--- NOTE | 2024-08-06 10:32 | AM.OFFWIN_ITS ---
Intake Vital Signs 08/06/24 10:34 Weight 156 lb BP 108/60 Blood Pressure Location Rt brachial Position Sitting Pulse 77 Pulse Source Pulse Oximeter Temp 97.9 F Temp Source Oral Pulse Oximetry (%) 100 Oxygen Delivery Method Room Air Intake Visit Reasons: EP UTI? Intake Note: Patient here for pelvic pain, burning when urinating that started about 2 weeks ago. Patient Tobacco Use Status: Never used Tobacco Allergies No Known Allergies Allergy (Verified 08/06/24 10:35) Do you need a note to return to daycare/school/sports/work: No HPI HPI Comments History of Present Illness Details This is a 29-year-old female with no stated past medical or surgical history presenting for evaluation of dysuria that she has had for the past 4 days. Patient states that she is spotting vaginally at this time and her last normal menstrual period started at the beginning of July 26, 2024. Patient denies having any fevers, chills, urinary frequency, vaginal discharge, dyspareunia or new sexual partners. Patient does have an appointment with her legislative correspondent for her annual exam this coming Monday. [facility] Medical History Cervical cancer screening Family History Mother No problems noted. Father No problems noted. 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 Current occupational exposures/hazards: No Cognitive needs: No Hearing needs: No Vision needs: No Female Reproductive History Menstrual Age of Menarche: 14 Review of Systems Const All systems reviewed & are unremarkable except as noted in HPI and below Denies chills, Denies fatigue and Denies fever(s) Eyes Reports no additional complaints ENT Reports no additional complaints Card Reports no additional complaints Resp Reports no additional complaints GI Reports no additional complaints, Denies dyspepsia, Denies heartburn, Denies diarrhea, Denies nausea and Denies vomiting Denies hematuria, Denies dyspareunia, Reports dysuria, Denies pelvic pain, Denies urinary incontinence and Denies vaginal dryness Musc Reports no additional complaints Skin/Breast Reports system reviewed and no additional complaints, except as documented Neuro Reports no additional complaints Psych Reports no additional complaints Endo Denies fatigue Physical Exam Vital Signs: Last Vital Signs Temp 97.9 F 08/06/24 10:34 Pulse 77 08/06/24 10:34 BP 108/60 08/06/24 10:34 Pulse Ox 100 08/06/24 10:34 Oxygen Delivery Method Room Air 08/06/24 10:34 Patient is afebrile. Const General: cooperative, healthy appearing, comfortable, no acute distress, well developed, alert, awake and Physically active; No lethargic Nutritional Appearance: average body habitus and well nourished Orientation/consciousness: patient oriented x3 and No lethargic Limitations: no limitations GI Palpation (GI): Soft to palpation and Tenderness to palpation present (GI) in the RLQ; not in the LUQ, not suprapubicly and with no rebound tenderness Auscultation: normal bowel sounds General: Yes Bimanual renal exam normal bilaterally and Yes bladder normal to palpation Bimanual exam- vagina & uterus: bladder normal to palpation Skin General skin exam: no rashes or lesions noted Neuro General: patient oriented x3 Psych Appearance: grossly normal Mental Status: mental status grossly normal Insight: Good insight present (Psych) Judgement: Good judgement present (Psych) Results AMB Urinalysis, Automated UA Leukoctes 500 Helene/uL Last Edit by MERCEDES Kelly on 08/06/24 11: 10 UA Nitrite Positive Last Edit by MERCEDES Kelly on 08/06/24 11:10 UA Urobilinogen 1 mg/dL Last Edit by MERCEDES Kelly on 08/06/24 11: 10 UA Protein 0 mg/dL Last Edit by MERCEDES Kelly on 08/06/24 11:10 UA pH 6.5 Last Edit by MERCEDES Kelly on 08/06/24 11:10 UA Blood 200 Nish/uL Last Edit by MERCEDES Kelly on 08/06/24 11:10 UA Specific [place] 1.005 Last Edit by MERCEDES Kelly on 08/06/24 11:10 UA Ketone Negative Last Edit by MERCEDES Kelly on 08/06/24 11:10 UA Bilirubin 1 mg/dL Last Edit by MERCEDES Kelly on 08/06/24 11:10 UA Glucose 0 mg/dL Last Edit by MERCEDES Kelly on 08/06/24 11:10 Assessment & Plan Assessment & Plan (1) Dysuria: Comment: Patient's urinalysis is positive for both leukocytes and blood. A urine culture is pending at this time. Code(s): R30.0 - Dysuria Plan: Keflex 500mg TID x 7 days; patient will follow-up with her [facility] legislative correspondent on Monday for a routine annual examination and follow-up on the results of the urine culture. Patient is also instructed to go to the ED if the pain in her right lower quadrant worsens. Orders: Orders Urine Culture Today R30.0 - Dysuria AMB Urinalysis Automated Today Z13.9 - Encounter for screening, unspecified Medications: New cephalexin 500 mg PO Q8H 21 caps 0RF Coding Level of Care Code Est Pt Level 3 (23307) Diagnoses Dysuria R30.0 Time Spent (min) 25
[2024-08-06 10:34] VITALS: BP 108/60; PULSE 77; TEMP 36.6; O2SAT 100
== END 2024-08-06 11:18 | disposition home or self-care (01) ==
PROVIDERS: PCP Nurse Practitioner Family; Visit Provider Physician Assistant
DX: R30.0 Dysuria (principal); Z13.9 Encounter for screening, unspecified

== ENCOUNTER 2024-08-09 09:35 | Outpatient (AMB) | payer OTHER, SELFPAY ==
--- NOTE | 2024-08-09 09:38 | A.OFFVIS_ITS ---
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 She understood it was to be taken every 8 hours and for her that translated to twice a day not 3 times a day. Regardless she no longer has dysuria or pain with urination she still does have discomfort on her right and left sides both sides of her adnexa but more so on the right. Her. Started with spotting last Monday but is heavy in the last 2 days. This is the 2nd full menses she has had since she had an with pills in April, that she thought was done for 14-15 week , and the eating lingered on for about 6 weeks and [facility]. She did not get a period in June at all. She has been using condoms ever since 100% she would like to get back on control pills and she has been on them before and remembers how to take them her our discussion today. [facility] Medical History Cervical cancer screening Family History Mother No problems noted. Father No problems noted. 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 Current occupational exposures/hazards: No Cognitive needs: No Hearing needs: No Vision needs: No Female Reproductive History Menstrual Age of Menarche: 14 Duration of menses: 6-7 days Date of last menstrual period: 07/08/24 Total pregnancies: 2 Full term: 1 Ab induced: 1 Date of last pap smear: 09/08/20 (negative) Physical Exam Vital Signs: Last Vital Signs BP 98/60 08/09/24 09:41 BMI result Body Mass Index 25.2 Const General: healthy appearing, comfortable, no acute distress, well developed and alert Nutritional Appearance: average body habitus Orientation/consciousness: patient oriented x3 Limitations: no limitations HEENT Head: Yes normocephalic Neck Neck: Yes normal visual inspection Chest Chest palpation & inspection: normal inspection of the chest Breast/axilla inspection: normal inspection of the breasts and normal inspection of the axillae Breast/axilla palpation: normal palpation of the breasts and normal palpation of the axillae Resp Effort & Inspection: normal respiratory effort GI Inspection: Yes normal to inspection, No Abdominal wall edema and No distended Palpation (GI): Soft to palpation and nontender Other: Normal pelvic exam be menses that appear very normal and healthy and heavy. Cervix multiparous smooth mobile nontender uterus small firm midposition , adnexa nontender not enlarged. Patient did have some discomfort when I was palpating adnexal areas abdominally but not during the pelvic exam. Fair tone with Kegel I gave her a handout on doing Kegel's and explained how to do them. General: Yes bladder normal to palpation External Female Exam: normal external appearance and normal appearance of the urethra Speculum Exam - Vagina: normal appearance of the vagina, normal palpation and normal vaginal discharge Speculum Exam - Cervix: normal appearance of the cervix, normal palpation and nontender Bimanual exam- vagina & uterus: normal bimanual exam, normal palpation, uterine size normal, bladder normal to palpation, consistency normal, normal palpation, uterine mobility normal, uterine shape normal, No Cervical tenderness present, non-tender and no cervical motion tenderness Bimanual Exam- Adnexa, other: normal adnexae, no masses, normal and No adnexal tenderness Neuro General: patient oriented x3 Results Reviewed Results Reviewed: UN: 08/09/24 0946 PAGE 1 [facility] [address] [place] [id number] Montessori Program Director: Fabian Mcintosh M.D. Specimen Inquiry Name: Faith Zhong Age/Sex: 29/F : 1995 Unit#: [id number] Attend Dr: Katy Haji PA-C Re08/06/24 Status: DEP REF Location: [facility] Disch: Specimen: [id number] Collected: 08/06/24-100 Status: COMP Req#: [id number] Received: 08/06/24-1348 Source: [facility] Desc: Subm Dr: Katy Haji Ordered: Urine Culture Procedure Result Verified Urine Culture Final 08/07/241120 No growth. END OF REPORT Assessment & Plan Assessment & Plan (1) Cervical cancer screening: Comment: first pap 09/08/20=sat/nil; has full menses 08/09/2024, Pap smear deferred to next visit.... Code(s): Z12.4 - Encounter for screening for malignant neoplasm of cervix Category: Medical (2) Well woman exam with routine gynecological exam: Code(s): Z01.419 - Encounter for gynecological examination (general) (routine) without abnormal findings Category: Medical (3) Counseling for initiation of control method: Code(s): Z30.09 - Encounter for other general counseling and advice on contraception Category: Medical (4) control counseling: Code(s): Z30.09 - Encounter for other general counseling and advice on contraception Category: Medical (5) Pelvic floor weakness: Comment: Recommend Kegel's is often as she can remember them -discussed how to figure out how to engage those muscles. Code(s): N81.89 - Other female genital prolapse Category: Medical (6) Dysuria: Comment: Patient's urinalysis is positive for both leukocytes and blood. A urine culture is pending at this time. ;08/09/24-urine culture final is no growth we will have patient start antibiotic. Her dysuria has resolved obtaining ultrasound to check adnexal discomfort. Code(s): R30.0 - Dysuria Category: Medical (7) Pelvic pain: Comment: Obtaining ultrasound to rule out pathology. none appreciated at pelvic exam.. Code(s): R10.2 - Pelvic and perineal pain Category: Medical Plan Patient is scheduled here for ob/gyn annual exam but she was seen just a couple of days ago for what she thought was a UTI at urgent care and she was started on antibiotics she has taken by her counts a total of 5 doses over 2 and half days. She understood it was to be taken every 8 hours and for her that translated to twice a day not 3 times a day. Regardless she no longer has dysuria or pain with urination she still does have discomfort on her right and left sides both sides of her adnexa but more so on the right. Her. Started with spotting last Monday but is heavy in the last 2 days. This is the 2nd full menses she has had since she had an with pills in April, that she thought was done for 14-15 week , and the eating lingered on for about 6 weeks and [facility]. She did not get a period in June at all. She has been using condoms ever since 100% she would like to get back on control pills and she has been on them before and remembers how to take them her our discussion today. She is bleeding too heavy to do her Pap smear today which she is due for so she will have her Pap smear done at her next visit in 1-3 months when she returns for review of her control pills in her ultrasound. She wants to start on control pills this is a perfect time for her to start on them as she is essentially at the start of a menses with heavy bleeding on day 2 or 3, so I recommend she start pills today and take 1 pill every single day and do not skip any days in between pill packs.. Her urine culture came back no growth so it would be acceptable her to stopped the antibiotics and actually stopped them with the pharmacy. I am ordering the control pills for her. I am also ordering a pelvic ultrasound though I do not feel any pathology or enlargement at her ovaries she is having some discomfort in both adnexa and more so on her right so I am going to obtain an ultrasound to just check for any anomaly. I did review her history of the TAB in her menses and that it is most likely she was not 14-15 weeks gestation at the time of her or else they would not have prescribed the pills for her that would have needed to have been a an in-house surgical procedure at [facility] so it must have been a very early in retrospect she thinks maybe it was 8 weeks. Reviewed issues to watch for with the control pills which she is familiar with having been on them before though I am not going to have her skip placebo pills. Orders: Orders US pelvic and transvaginal Today N81.89 - Other female genital prolapse, R10.2 - Pelvic and perineal pain, R30.0 - Dysuria, Z01.419 - Encounter for gynecological examination (general) (routine) without abnormal findings, Z12.4 - Encounter for screening for malignant neoplasm of cervix, Z30.09 - Encounter for other general counseling and advice on contraception Bacterial Vaginosis Panel Today R10.2 - Pelvic and perineal pain, Z01.419 - Encounter for gynecological examination (general) (routine) without abnormal findings CT NG by PCR Today R10.2 - Pelvic and perineal pain, Z01.419 - Encounter for gynecological examination (general) (routine) without abnormal findings Medications: New desog-e.estradiol/e.estradiol 0.15-0.02 mgx21 /0.01 mg x 5 1 tab PO DAILY 84 tabs 4RF Discontinued cephalexin Discontinued Reason: No Longer Medically Relevant 500 mg PO Q8H 21 caps 0RF Coding Level of Care Code Est Pt Prev Care 18-39y(11988) Diagnoses Cervical cancer screening Z12.4 Well woman exam with routine gynecological exam Z01.419 Counseling for initiation of control method Z30.09 control counseling Z30.09 Pelvic floor weakness N81.89 Dysuria R30.0 Pelvic pain R10.2
[2024-08-09 09:41] VITALS: BP 98/60; BMI 25.2
== END 2024-08-09 10:46 | disposition home or self-care (01) ==
PROVIDERS: PCP Nurse Practitioner Family; Visit Provider Advanced Practice Midwife
DX: Z01.419 Encounter for gynecological examination (general) (routine) without abnormal findings (principal); N81.89 Other female genital prolapse; R30.0 Dysuria; R10.2 Pelvic and perineal pain; Z30.09 Encounter for other general counseling and advice on contraception
CPT/HCPCS: 99395; 99459

== ENCOUNTER 2024-08-09 09:35 | Outpatient (REF) | payer OTHER, SELFPAY ==
[2024-08-10 05:16] LABS: CT PCR NOT DETECTED (Not Detect.); NG PCR NOT DETECTED (Not Detect.)
[2024-08-10 14:48] LABS: Bacterial Vaginosis PCR POSITIVE (Negative); Candida Group PCR NOT DETECTED (Not Detect); Candida glab krusei PCR NOT DETECTED (Not Detect); Trichomonas vaginalis PCR NOT DETECTED (Not Detect)
== END 2024-08-09 09:36 | disposition home or self-care (01) ==
LOC: HO.LNP 09:35
PROVIDERS: PCP Nurse Practitioner Family; Visit Provider Advanced Practice Midwife
DX: Z01.419 Encounter for gynecological examination (general) (routine) without abnormal findings (principal); R10.2 Pelvic and perineal pain; N81.89 Other female genital prolapse; R30.0 Dysuria
CPT/HCPCS: 81515; 87491; 87591

== ENCOUNTER → 2024-09-11 10:48 | Outpatient (BNV) | payer OTHER, SELFPAY | PROVIDERS: PCP Nurse Practitioner Family; Visit Provider Radiology Diagnostic Radiology | DX: N81.89 Other female genital prolapse (principal) | CPT/HCPCS: 76830; 76856 ==

== ENCOUNTER 2025-02-04 10:25 | Outpatient (AMB) | payer OTHER, SELFPAY ==
--- NOTE | 2025-02-04 10:34 | A.OFFVIS_ITS ---
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 History of pelvic pain seen previously by Mariel Gonsalez CNM, and reports pain had resolved after her last visit. She reports taking her pills regularly until she forgot her pack on vacation last month. She experienced the withdrawal bleed at the usual timeframe. She denies any unprotected intimacy in his been using condoms. History of irregular cycles often skipping a month or so. UPT is negative today. [facility] Medical History (Updated 02/04/25 @ 11:37 by Roseline Quijano CNM) Pelvic floor weakness Cervical cancer screening Family History Mother No problems noted. Father No problems noted. 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 [employer] Current occupational exposures/hazards: No Cognitive needs: No Hearing needs: No Vision needs: No Female Reproductive History Menstrual Age of Menarche: 14 Date of last menstrual period: 01/27/25 Review of Systems Const All systems reviewed & are unremarkable except as noted in HPI and below Endo Reports no additional complaints Physical Exam Vital Signs: Last Vital Signs BP 100/62 02/04/25 10:35 BMI result Body Mass Index 25.8 Const General: cooperative, healthy appearing and no acute distress Psych Appearance: well kempt Attitude: cooperative Thought process: Normal thought process present Results AMB Test Urine AMB Test Urine Negative Last Edit by TERRI Rutherford on 02/04/25 10:52 Results Reviewed Results Reviewed: Laboratory Last Values [facility] Clinic Negative 02/04/25 10:[address] [place] [address] Ultrasound Report Signed Patient: Faith Zhong MR#: [id number] : 1995 Acct:[id number] Age/Sex: 29 / F ADM Date: 09/11/24 Loc: HO.US Attending Dr: Mariel Gonsalez CNM Ordering Physician: Mariel Gonsalez CNM Date of Service: 09/11/24 Procedure(s): US pelvic and transvaginal Accession Number(s): [id number] cc: Mariel Gonsalez CNM; Diane Moran TEACHERS AIDE-~ CLINICAL HISTORY: Z01.419 - Encounter for gynecological examination (general) (routine) wi... US Pelvis Transabdominal and Transvaginal COMPARISON: None FINDINGS: Transabdominal scanning performed for overall anatomy. Transvaginal scanning performed for additional detail. Uterus measures 7.7 x 3.8 x 5.1 cm. Normal echotexture. Anteverted, anteflexed. No mass. Small nonspecific calcification in the cervix. Normal endometrium, 6 mm thickness. No endometrial mass. Right ovary: 3.7 x 1.9 x 2.1 cm. Right ovarian corpus luteum. No mass. Normal Doppler color flow. Left ovary: 3.1 x 2.1 x 2.5 cm. No mass. Normal Doppler color flow. Small physiologic free fluid in the cul-de-sac. IMPRESSION: No acute findings. This document has been electronically signed by: Anthony Heller MD on 09/12/2024 04:58:23 Dictated By: Anthony Heller MD Signed By: <Electronically signed by Anthony eHller MD in OV> 09/12/24 0459 DD/ 0458 TD/TT: 09/12/24 0458 Tube Former Operator: Assessment & Plan Assessment & Plan (1) Encounter to discuss test results: Code(s): Z71.2 - Person consulting for explanation of examination or test findings Plan: Discussed: Ultrasound findings-unremarkable (2) Contraceptive management: Code(s): Z30.9 - Encounter for contraceptive management, unspecified Qualifiers: Contraceptive type: pill Contraceptive encounter type: surveillance Qualified Code(s): Z30.41 - Encounter for surveillance of contraceptive pills Plan Reviewed use of pill, restarting instructions. Continue use of condoms. If any unscheduled or abnormal bleeding patterns to report to the office for further evaluation. Advised to take on time, set cell phone alerts if needed. Has refills on hand. Annual exam scheduled August 2025. The patient expressed understanding and agreement with the plan of care. All of her questions and concerns were addressed to the best of my ability. This note is constructed using voice recognition software. While every effort has been made to ensure accuracy, proofing machine operator errors may have been included. Orders: Orders AMB HCG Urine Test Today Z32.02 - Encounter for test, result negative Coding Level of Care Code Est Pt Level 3 (09686) Diagnoses Encounter to discuss test results Z71.2 Encounter for surveillance of contraceptive pills Z30.41 Contraceptive type: pill Contraceptive encounter type: surveillance
[2025-02-04 10:35] VITALS: BP 100/62; BMI 25.8
--- OUTSIDE RECORDS SUMMARY | 2025-02-04 11:36 | XMS_ITS | Clinical Summary ---
Author Organization [facility] ity Address [address] [place] [address] Care Team Providers Care Personal Financial Advisor Name Role Phone Unavailable Primary Care Provider Unavailabl e Surgical History Surgery Date Site/Laterality Comments TONSILLECTOMY PROCEDURE: [place] TONSILLECTOMY PRIMARY/SECONDARY <AGE 14 Medical History Medical History Date Comments Patient denies medical problems DX:Patient denies medical problems Family History Medical History Relation Name Comments No Known Problems Father No Known Problems Mother Relation Name Status Comments Father Mother Social History Tobacco Use Types Packs/Day Years Used Date Smoking Tobacco: Never Smokeless Tobacco: Never Alcohol Use Standard Drinks/Week Comments Not Currently 0 (1 standard drink = 0.6 oz pur e alcohol) Comments Unknown Sex and Gender Information Value Date Recorded Sex Assigned at Not on file Legal Sex Female 9:55 AM EST Gender Identity Not on file Sexual Orientation Not on file Obstetrics History Plan of Treatment Health Maintenance Due Date Last Done Comments DTaP,Tdap,and Td Vaccines (1 - Tdap) 2016 Hepatitis B Vaccines (1 of 3 - 19+ 3-dose series) 2016 Cervical Cancer Screening: P ap Smear 2018 COVID-19 Vaccine (2023-2 5 season) 2024 Influenza Vaccine (Season Ended) 2025 HIB Vaccines Aged Out No longer eligi ble based on patient's age to complete this topic HPV Vaccines Aged Out No longer eligi ble based on patient's age to complete this topic Hepatitis A Vaccines Aged Out No long er eligible based on patient's age to complete this topic IPV Vaccines Aged Out No longer eligi ble based on patient's age to complete this topic MMR Vaccines Aged Out No longer eligi ble based on patient's age to complete this topic Meningococcal ACWY Vaccine Aged Out N o longer eligible based on patient's age to complete this topic Meningococcal B Vaccine Aged Out No l onger eligible based on patient's age to complete this topic Pneumococcal Vaccine: Pediat rics (0 to 5 Years) and At-Risk Patients (6 to 64 Years) Aged Out No longer eligible b ased on patient's age to complete this topic RSV Immunization Patients Un mando 20 months Aged Out No longer eligible b ased on patient's age to complete this topic Varicella Vaccines Aged Out No longer eligible based on patient's age to complete this topic
== END 2025-02-05 07:10 | disposition home or self-care (01) ==
LOC: HO.HWS 10:26
PROVIDERS: PCP Nurse Practitioner Family; Visit Provider Advanced Practice Midwife
DX: Z71.2 Person consulting for explanation of examination or test findings (principal); Z30.41 Encounter for surveillance of contraceptive pills; Z32.02 Encounter for pregnancy test, result negative
CPT/HCPCS: 99213

== ENCOUNTER → 2025-02-04 10:25 | Outpatient (BNVA) | payer OTHER, SELFPAY | PROVIDERS: PCP Nurse Practitioner Family; Visit Provider Advanced Practice Midwife | DX: Z32.02 Encounter for pregnancy test, result negative (principal) | CPT/HCPCS: 81025 ==